=== PATIENT | female | born 1950 | race Caucasian/White ===

== ENCOUNTER 2019-05-29 13:09 | Outpatient (CLI) | payer BC | END 2019-05-29 23:59 | disposition home or self-care (01) | LOC: CFH 13:09 | PROVIDERS: ATTEND Nurse Practitioner Primary Care | DX: R92.2 Inconclusive mammogram (principal) | CPT/HCPCS: 76642; 77065 ==

== ENCOUNTER 2019-06-15 12:18 | Outpatient (CLI) | payer BC | END 2019-06-15 23:59 | disposition home or self-care (01) | LOC: CFH 12:18 | PROVIDERS: ATTEND Nurse Practitioner Primary Care | DX: N63.10 Unspecified lump in the right breast, unspecified quadrant (principal); C50.911 Malignant neoplasm of unspecified site of right female breast | CPT/HCPCS: 19083; 19285; 88305; 88341; 88342; 88360; 77065 ==

== ENCOUNTER 2019-07-10 09:12 | Day surgery (SDC) | payer BC, MEDICARE ==
[~2019-07-10] VITALS: Ht 160 cm; Wt 77.0 kg
[~2019-07-10 09:12] MED LIST: IBUP200T64 PO
[2019-07-10] MEDS ORDERED: LACTATED RINGERS 1,000 ML IV SCH (09:31)
[2019-07-10] MEDS ORDERED: SCOPOLAMINE PATCH, 1.5MG PATCH.TD72 TD ONE (10:00)
[2019-07-10] MEDS ORDERED: ACETAMINOPHEN 500 MG TABLET PO ONE (10:00)
[2019-07-10 10:18] VITALS: BP 147/88
[2019-07-10] MEDS ORDERED: LIDOCAINE/PRILOCAINE CRM W/TEG 5GM TP STA (10:18)
[2019-07-10] MEDS ORDERED: BUPIVACAINE/PF 0.5% ONE (11:15)
[2019-07-10] MEDS ORDERED: ISOSULFAN BLUE 10 MG/ML, 5ML IV ONE (11:15)
[2019-07-10] MEDS ORDERED: EPINEPHRINE 1 MG/ML, 1ML ONE (11:16)
[2019-07-10] MEDS ORDERED: MIDAZOLAM 1 MG/ML, 2ML ONE (11:32)
[2019-07-10] MEDS ORDERED: ROCURONIUM 10MG/ML,5ML ONE (11:33)
[2019-07-10] MEDS ORDERED: DEXAMETHASONE 4 MG/ML, 1ML ONE (11:33)
[2019-07-10] MEDS ORDERED: FENTANYL PF 250 MCG/5ML ONE (11:33)
[2019-07-10] MEDS ORDERED: CEFAZOLIN 1,000 MG ONE (11:33)
[2019-07-10] MEDS ORDERED: PROPOFOL 10 MG/ML, 20ML ONE (11:33)
[2019-07-10] MEDS ORDERED: SUCCINYLCHOLINE 20 MG/ML, 10ML ONE (11:33)
[2019-07-10] MEDS ORDERED: ONDANSETRON 2MG/ML, 2ML ONE (12:27)
[2019-07-10] MEDS ORDERED: ONDANSETRON 2MG/ML, 2ML IV PRN (12:30)
[2019-07-10] MEDS ORDERED: EPHEDRINE 50 MG/ML, 1ML IVPush PRN (12:30)
[2019-07-10] MEDS ORDERED: MIDAZOLAM 1 MG/ML, 2ML IV PRN (12:30)
[2019-07-10] MEDS ORDERED: HALOPERIDOL 5 MG/ML IV PRN (12:30)
[2019-07-10] MEDS ORDERED: ALBUTEROL SULFATE 2.5 MG/3 ML NPPB PRN (12:30)
[2019-07-10] MEDS ORDERED: HYDROmorphone 2 MG/ML, 1ML IVPush PRN (12:30)
[2019-07-10] MEDS ORDERED: PROMETHAZINE 25 MG/ML, 1ML IV PRN (12:30)
[2019-07-10] MEDS ORDERED: DIAZEPAM 5 MG/ML, 2ML IVPush PRN (12:30)
[2019-07-10] MEDS ORDERED: PROMETHAZINE 12.5 MG SUPP PR PRN (12:30)
[2019-07-10] MEDS ORDERED: ONDANSETRON ODT 8 MG PO PRN (12:30)
[2019-07-10] MEDS ORDERED: LABETALOL 5MG/ML, 20ML IV PRN (12:30)
[2019-07-10] MEDS ORDERED: MEPERIDINE/PF 25MG/ML,1ML IVPush PRN (12:30)
[2019-07-10] MEDS ORDERED: hydrALAzine 20 MG/ML, 1ML IV PRN (12:30)
[2019-07-10] MEDS ORDERED: FENTANYL PF 100 MCG/2ML ONE (13:08)
[2019-07-10] MEDS ORDERED: OXYcodone 5 MG/5 ML ORAL.SOL UDC ONE (13:09)
[2019-07-10] MEDS: FENTANYL PF 100 MCG/2ML IV PRN ×4 (13:10→13:40)
[2019-07-10] MEDS: OXYcodone 5 MG/5 ML ORAL.SOL UDC PO PRN ×2 (13:15→14:57)
== END 2019-07-10 15:50 | disposition home or self-care (01) ==
LOC: SDC 09:12 → OUT 15:50
PROVIDERS: ATTEND Surgery
DX: C50.012 Malignant neoplasm of nipple and areola, left female breast (principal); Z98.891 History of uterine scar from previous surgery; Z90.710 Acquired absence of both cervix and uterus; Z98.890 Other specified postprocedural states; Z79.899 Other long term (current) drug therapy; Z17.0 Estrogen receptor positive status [ER+]
CPT/HCPCS: 19301; 38525; 38792; 76098; 88305; 88307; 88329; 88341; 88342; 93005; A9541; J0171; J0330; J0690; J1100; J2250; J2405; J2704; J3010; J7120

== ENCOUNTER → 2019-08-03 | Outpatient (CLI) | payer BC, MEDICARE | END | disposition home or self-care (01) | LOC: ROC 07:53 | PROVIDERS: ATTEND Radiology Radiation Oncology | DX: C50.311 Malignant neoplasm of lower-inner quadrant of right female breast (principal) | CPT/HCPCS: 99214; G0463 ==

== ENCOUNTER → 2019-12-12 | Outpatient (CLI) | payer BC, MEDICARE | END | disposition home or self-care (01) | LOC: CFH 11:19 | PROVIDERS: ATTEND Internal Medicine Hematology & Oncology | DX: C50.811 Malignant neoplasm of overlapping sites of right female breast (principal); M85.80 Other specified disorders of bone density and structure, unspecified site; N95.8 Other specified menopausal and perimenopausal disorders | CPT/HCPCS: 77080 ==

== ENCOUNTER 2020-01-01 12:11 | Outpatient (CLI) | payer BC, MEDICARE | END 2020-01-01 23:59 | disposition home or self-care (01) | LOC: CFH 12:11 | PROVIDERS: ATTEND Radiology Radiation Oncology | DX: C50.311 Malignant neoplasm of lower-inner quadrant of right female breast (principal); R23.4 Changes in skin texture | CPT/HCPCS: 76642; 77066; G0279 ==

== ENCOUNTER 2020-02-22 10:56 | Outpatient (CLI) | payer BC, MEDICARE | END 2020-02-22 23:59 | disposition home or self-care (01) | LOC: ROC 10:56 | PROVIDERS: ATTEND Radiology Radiation Oncology | DX: Z08 Encounter for follow-up examination after completed treatment for malignant neoplasm (principal); Z85.3 Personal history of malignant neoplasm of breast; E78.5 Hyperlipidemia, unspecified; Z90.710 Acquired absence of both cervix and uterus | CPT/HCPCS: 99212; G0463 ==

== ENCOUNTER → 2020-05-16 | Outpatient (CLI) | payer BC, MEDICARE | END | disposition home or self-care (01) | LOC: ROC 08:13 | PROVIDERS: ATTEND Radiology Radiation Oncology | DX: Z08 Encounter for follow-up examination after completed treatment for malignant neoplasm (principal); Z85.3 Personal history of malignant neoplasm of breast; I10 Essential (primary) hypertension; E78.5 Hyperlipidemia, unspecified; E55.9 Vitamin D deficiency, unspecified; Z90.710 Acquired absence of both cervix and uterus | CPT/HCPCS: G0463 ==

== ENCOUNTER 2020-08-15 08:29 | Outpatient (CLI) | payer BC, MEDICARE | END 2020-08-15 23:59 | disposition home or self-care (01) | LOC: ROC 08:29 | PROVIDERS: ATTEND Radiology Radiation Oncology | DX: Z08 Encounter for follow-up examination after completed treatment for malignant neoplasm (principal); Z85.3 Personal history of malignant neoplasm of breast | CPT/HCPCS: G0463 ==

== ENCOUNTER 2021-01-31 10:08 | Outpatient (CLI) | payer BC, MEDICARE | END 2021-01-31 23:59 | disposition home or self-care (01) | LOC: ROC 10:08 | PROVIDERS: ATTEND Radiology Radiation Oncology | DX: Z08 Encounter for follow-up examination after completed treatment for malignant neoplasm (principal); Z85.3 Personal history of malignant neoplasm of breast | CPT/HCPCS: G0463 ==